=== PATIENT | female | born 1960 | race Caucasian/White ===

== ENCOUNTER 2019-03-09 14:46 | Emergency (ER) | payer BC, SELFPAY ==
[2019-03-09 14:52] VITALS: BP 149/84; PULSE 104; RESP 18; TEMP 36.1; O2SAT 94
--- NOTE | 2019-03-09 15:03 | W.ED.GENAD ---
Discharge Plan Disposition Patient Disposition: HOME Condition: Fair Discharge Details Chief Complaint: Laceration Clinical Impression: Hand laceration Primary Care Provider: Lauren,Local ED Provider: Liliane Bruno Home Meds and New Rx's Prescriptions: Continued venlafaxine 150 mg Capsule,Extended Release 24hr 150 mg PO DAILY RF: 0 prednisone 1 mg Tablet 3 mg PO DAILY AM RF: 0 Discharge Instructions Instructions: Laceration (ED) Additional Instructions: Keep wound clean, dry, covered. Tylenol and ibuprofen as needed for discomfort. Please keep current dressing on for the next 24 hours, after that time you may cover with Band-Aid. Please wear gloves when appropriate. Monitor for signs of infection including redness, warmth, drainage, increased pain, fever/chills. If these or other new/worsening symptoms arise please seek care urgently once again. Otherwise, please follow-up with primary care provider in 10 days for suture removal. Discharge Data Discharge Date/Time-TO BE ENTERED AT DEPARTURE: 03/09/19 15:44 Medical Decision Making Patient is a 58-year-old [id number] female presents today with chief complaint of laceration to left hand. She reports at approximately 9:00 this morning she cut her left hand well with the lawnmower. Since that time, has had difficulty with bleeding. Patient is not anticoagulated. She denies any fevers or chills. Denies other injuries from the incident. No altered sensation. Exam reveals a 1.5 cm linear laceration running in the web space between the thumb and index finger on the left hand. Wound is not actively bleeding. This is a subcutaneous tissue does open with movement of the thumb. Sensation is intact, ligamentously intact. Discussed risk/benefits of suture closure. Patient voiced understanding and wished to proceed. Patient is not up-to-date on tetanus, will update this today Please see procedure note. Patient tolerated this well. Discussed the using standard sterile technique. Wound was explored to base in bloodless field no foreign body or debris was noted. #3 sutures placed. Patient I discussed wound care in depth. Dressing was applied. We discussed signs symptoms of infection when to seek care urgently once again. She will return to follow-up with her primary care in 10 days for suture removal. All of her questions and concerns were addressed and she is in agreement this plan. HPI General Mode of arrival: ambulatory. Date/Time Provider Initiated Documentation: 03/09/19 14:54. Limitations to Documentation: no limitations. Information obtained by: patient and RN notes reviewed. History of Present Illness 58 year old F presents to the emergency department with the chief complaint of laceration left hand, described as moderate, Quality is described as burning, and is localized to the left and upper extremity. Patient reports no radiation. Patient started experiencing this hour(s) (6) and it has been constant. Immobilization improves symptom(s), Movement worsens symptoms . Patient notes no other symptoms.. Patient did receive the following treatments prior to arrival, none Related Data Home Medications Medication Instructions Recorded Confirmed prednisone 3 mg PO DAILY AM 03/09/19 03/09/19 venlafaxine 150 mg PO DAILY 03/09/19 03/09/19 Allergies Allergy/AdvReac Type Severity Reaction Status Date / Time No Known Allergies Allergy Unverified 03/09/19 14:55 General Stated Complaint: Laceration LULA: 4 Review of Systems Constitutional Reports as per HPI, Denies chills and Denies fever(s) Musculoskeletal Reports as per HPI Integumentary/Breasts Reports as per HPI Neurologic Reports as per HPI, Denies sensory deficit and Denies paresthesias [facility] Social History Smoking/Tobacco Use Status: Never Alcohol Intake: never Drug use: Never Do you feel safe at home: Yes Do you feel safe in your relationship?: Yes Exam Const General: cooperative, healthy appearing, comfortable, no acute distress and well developed Nutritional Appearance: average body habitus and well nourished Orientation: alert and awake Resp Effort & Inspection: normal respiratory effort, able to speak in complete sentences and no respiratory distress Cardio Rate: regular rate Rhythm: regular rhythm Skin Trauma: laceration (1.5cm laceration to web between thumb and index left ) Neuro General: alert and awake Cognition: normal cognition Speech: speech normal Gait: normal gait Sensory Exam: no sensory deficits noted Extrem Left upper extremity: full ROM, normal capillary refill and hand Details: normal to inspection, neuromotor exam normal, neurosensory exam normal and tendon exam normal; abnormal to inspection (laceration as above) Psych Appearance: grossly normal and well kempt Mental Status: mental status grossly normal Speech and Movement: speech and movement normal Course Vital Signs Temperature 36.1 C L 03/09/19 14:52 Pulse 104 H 06/15/19 14:52 Respiratory Rate 18 03/09/19 14:52 Blood Pressure 149/84 H 03/09/19 14:52 Pulse Oximetry 94 L 03/09/19 14:52 Temperature 36.1 C L 03/09/19 14:52 Temperature Source Tympanic 03/09/19 14:52 Pulse 104 H 03/09/19 14:52 Respiratory Rate 18 03/09/19 14:52 Blood Pressure 149/84 H 03/09/19 14:52 Blood Pressure Position Sitting 03/09/19 14:52 Pulse Oximetry 94 L 03/09/19 14:52 Oxygen Delivery Method Room Air 03/09/19 14:52 Oxygen Flow Rate 0 03/09/19 14:52 Procedures Laceration Laceration 1: Site: hand Side (If applicable): left Size (cm): 1.5 Description: linear Depth: simple, single layer Local Anesthetic: Lidocaine 1% Amount of anesthesia used (mL): 4 Pre-repair: wound explored, irrigated extensively and deep structures intact Skin layer closed with: nylon Size (cm): 5-0 Number of sutures: 3 Technique: simple, interrupted
--- NOTE | 2019-03-09 15:12 | ED.GENADUL_ITS ---
Discharge Plan Disposition Patient Disposition: HOME Condition: Fair Discharge Details Chief Complaint: Laceration Clinical Impression: Hand laceration Primary Care Provider: Lauren,Local ED Provider: Liliane Bruno Home Meds and New Rx's Prescriptions: Continued venlafaxine 150 mg Capsule,Extended Release 24hr 150 mg PO DAILY RF: 0 prednisone 1 mg Tablet 3 mg PO DAILY AM RF: 0 Discharge Instructions Instructions: Laceration (ED) Additional Instructions: Keep wound clean, dry, covered. Tylenol and ibuprofen as needed for discomfort. Please keep current dressing on for the next 24 hours, after that time you may cover with Band-Aid. Please wear gloves when appropriate. Monitor for signs of infection including redness, warmth, drainage, increased pain, fever/chills. If these or other new/worsening symptoms arise please seek care urgently once again. Otherwise, please follow-up with primary care provider in 10 days for suture removal. Discharge Data Discharge Date/Time-TO BE ENTERED AT DEPARTURE: 03/09/19 15:44 Medical Decision Making Patient is a 58-year-old cqtji-[id number] female presents today with chief complaint of laceration to left hand. She reports at approximately 9:00 this morning she cut her left hand well with the lawnmower. Since that time, has had difficulty with bleeding. Patient is not anticoagulated. She denies any fevers or chills. Denies other injuries from the incident. No altered sensation. Exam reveals a 1.5 cm linear laceration running in the web space between the thumb and index finger on the left hand. Wound is not actively bleeding. This is a subcutaneous tissue does open with movement of the thumb. Sensation is intact, ligamentously intact. Discussed risk/benefits of suture closure. Patient voiced understanding and wished to proceed. Patient is not up-to-date on tetanus, will update this today Please see procedure note. Patient tolerated this well. Discussed the using standard sterile technique. Wound was explored to base in bloodless field no foreign body or debris was noted. #3 sutures placed. Patient I discussed wound care in depth. Dressing was applied. We discussed signs symptoms of infection when to seek care urgently once again. She will return to follow-up with her [facility] care in 10 days for suture removal. All of her questions and concerns were addressed and she is in agreement this plan. HPI General Mode of arrival: ambulatory . Date/Time Provider Initiated Documentation: 03/09/19 14:54 . Limitations to Documentation: no limitations . Information obtained by: patient and RN notes reviewed . History of Present Illness 58 year old F presents to the emergency department with the chief complaint of laceration left hand, described as moderate, Quality is described as burning, and is localized to the left and upper extremity. Patient reports no radiation. Patient started experiencing this hour(s) (6) and it has been constant. Immobilization improves symptom(s), Movement worsens symptoms . Patient notes no other symptoms.. Patient did receive the following treatments prior to arrival, none Related Data Home Medications Medication Instructions Recorded Confirmed prednisone 3 mg PO DAILY AM 03/09/19 03/09/19 venlafaxine 150 mg PO DAILY 03/09/19 03/09/19 Allergies Allergy/AdvReac Type Severity Reaction Status Date / Time No Known Allergies Allergy Unverified 03/09/19 14:55 General Stated Complaint: Laceration LULA: 4 Review of Systems Constitutional Reports as per HPI, Denies chills and Denies fever(s) Musculoskeletal Reports as per HPI Integumentary/Breasts Reports as per HPI Neurologic Reports as per HPI, Denies sensory deficit and Denies paresthesias [facility] Social History Smoking/Tobacco Use Status: Never Alcohol Intake: never Drug use: Never Do you feel safe at home: Yes Do you feel safe in your relationship?: Yes Exam Const General: cooperative, healthy appearing, comfortable, no acute distress and well developed Nutritional Appearance: average body habitus and well nourished Orientation: alert and awake Resp Effort & Inspection: normal respiratory effort, able to speak in complete sentences and no respiratory distress Cardio Rate: regular rate Rhythm: regular rhythm Skin Trauma: laceration (1.5cm laceration to web between thumb and index left ) Neuro General: alert and awake Cognition: normal cognition Speech: speech normal Gait: normal gait Sensory Exam: no sensory deficits noted Extrem Left upper extremity: full ROM, normal capillary refill and hand Details: normal to inspection, neuromotor exam normal, neurosensory exam normal and tendon exam normal; abnormal to inspection (laceration as above) Psych Appearance: grossly normal and well kempt Mental Status: mental status grossly normal Speech and Movement: speech and movement normal Course Vital Signs Temperature 36.1 C L 03/09/19 14:52 Pulse 104 H 03/09/19 14:52 Respiratory Rate 18 03/09/19 14:52 Blood Pressure 149/84 H 03/09/19 14:52 Pulse Oximetry 94 L 03/09/19 14:52 Temperature 36.1 C L 03/09/19 14:52 Temperature Source Tympanic 03/09/19 14:52 Pulse 104 H 03/09/19 14:52 Respiratory Rate 18 03/09/19 14:52 Blood Pressure 149/84 H 03/09/19 14:52 Blood Pressure Position Sitting 03/09/19 14:52 Pulse Oximetry 94 L 03/09/19 14:52 Oxygen Delivery Method Room Air 03/09/19 14:52 Oxygen Flow Rate 0 03/09/19 14:52 Procedures Laceration Laceration 1: Site: hand Side (If applicable): left Size (cm): 1.5 Description: linear Depth: simple, single layer Local Anesthetic: Lidocaine 1% Amount of anesthesia used (mL): 4 Pre-repair: wound explored, irrigated extensively and deep structures intact Skin layer closed with: nylon Size (cm): 5-0 Number of sutures: 3 Technique: simple, interrupted
== END 2019-03-09 15:44 | disposition home or self-care (01) ==
LOC: ER 15:55
PROVIDERS: Emergency Provider Physician Assistant
DX: S61.412A Laceration without foreign body of left hand, initial encounter (principal); W28.XXXA Contact with powered lawn mower, initial encounter
CPT/HCPCS: 12001; 90471